=== PATIENT | male | born 1950 | race Caucasian/White ===

== ENCOUNTER 2024-02-08 10:40 | Inpatient (IN) | payer OTHER ==
[~2024-02-08] VITALS: Ht 175.3 cm; Wt 81.0 kg
[2024-02-08 10:40] VITALS: BP_SYST 128; PULSE 79; RESP 20; TEMP 97.1; O2SAT 97
[2024-02-08] MEDS ORDERED: iohexoL 350 mgI/mL, 100 ML INFUS..BTL IV ONE (10:47)
[2024-02-08 11:14] LABS: BASOPHILS % (AUTO) 0.1 % (0.0-2.0); HEMATOCRIT 33.7 % (36-54); HEMOGLOBIN 11.4 g/dL (14.0-18.0); LYMPHOCYTES # (AUTO) 0.7 K/uL (1.0-5.5); LYMPHOCYTES % (AUTO) 3.7 % (20.5-51.5); MEAN CORPUSCULAR HEMOGLOBIN 29 pg (27-31); MEAN CORPUSCULAR HGB CONC 34 % (32-36); MEAN CORPUSCULAR VOLUME 85 fL (79.0-98.0); MONOCYTES # (AUTO) 1.4 K/uL (0.0-1.0); NEUTROPHILS # (AUTO) 18.3 K/uL (1.8-7.7); NEUTROPHILS % (AUTO) 89.2 % (40.0-70.0); PLATELET COUNT (AUTO) 177 K/uL (130-430); RED BLOOD CELL COUNT(AUTO) 3.96 MIL/uL (4.2-6.2); RED CELL DISTRIBUTION WIDTH 13.1 % (9.0-15.0); WHITE BLOOD COUNT (AUTO) 20.5 K/uL (4.8-10.8)
[2024-02-08 11:35] LABS: INR 1.1 (0.80-1.20); PROTHROMBIN TIME 11.7 SECS (9.5-12.5)
[2024-02-08 11:42] LABS: ALANINE AMINOTRANSFERASE 10 U/L (12-78); ALBUMIN 2.4 g/dL (3.4-4.8); ANION GAP 13 (5-15); ASPARTATE AMINOTRANSFERASE 23 U/L (10-37); CALCIUM 7.8 mg/dL (8.4-11.0); CARBON DIOXIDE 21 mmol/L (23-29); CHLORIDE 90 mmol/L (98-107); CREATININE 2.03 mg/dL (0.55-1.30); GLUCOSE 268 mg/dL (74-106); POTASSIUM 3.5 mmol/L (3.5-5.1); SODIUM SERUM 124 mmol/L (136-145); TOTAL PROTEIN, SERUM 5.7 g/dL (6.4-8.3); UREA NITROGEN, BLOOD 30 mg/dL (8-21)
[2024-02-08 11:54] LABS: BILIRUBIN,DIRECT 0.4 mg/dL (0.0-0.3); CREATINE KINASE, TOTAL 284 U/L (39-308)
[2024-02-08] MEDS ORDERED: cefTRIAXone 1 GM VIAL ONE (12:15)
[2024-02-08] MEDS: cefTRIAXone 1 GM in D5W 50 ML IV ONE (12:17)
[2024-02-08 12:19] LABS: ALCOHOL, BLOOD < 3 mg/dL (<10)
[2024-02-08] MEDS ORDERED: ZOLPIDEM TARTRATE 5 MG TABLET PO PRN (12:45)
[2024-02-08] MEDS ORDERED: ONDANSETRON HCL 4 MG/2 ML VIAL IVP PRN (12:45)
[2024-02-08] MEDS ORDERED: LORazepam 2 MG/ML VIAL IVP PRN (12:45)
[2024-02-08] MEDS ORDERED: DOCUSATE SODIUM 100 MG CAPSULE PO PRN (12:45)
[2024-02-08] MEDS ORDERED: INSULIN REGULAR, HUMAN 100 UNITS/ML, 3 ML VIAL (humuLIN R) SUBCUT PRN (12:45)
[2024-02-08] MEDS ORDERED: DEXTROSE 50% JECT 50 ML DISP.SYRIN IVP PRN (12:45)
[2024-02-08] MEDS ORDERED: MUPIROCIN 2% TOPICAL OINTMENT 22 GM NS PRN (12:45)
[2024-02-08] MEDS ORDERED: ACETAMINOPHEN 500 MG TABLET PO PRN ×2 (12:45→14:00)
[2024-02-08] MEDS ORDERED: MAGNESIUM SULFATE 50 ML IV PRN (12:45)
[2024-02-08] MEDS ORDERED: POTASSIUM CHLORIDE 20 MEQ TABLET.ER PO PRN (12:45)
[2024-02-08] MEDS ORDERED: MORPHINE 2 MG/ML INJ. SYRINGE IVP PRN ×2 (12:45)
[2024-02-08] MEDS ORDERED: INSU100V SUBCUT (12:52)
[2024-02-08] MEDS ORDERED: INSU100V9 SUBCUT (12:52)
[2024-02-08] MEDS ORDERED: ATOR20TA64 PO (12:52)
[2024-02-08] MEDS ORDERED: LOSA1TAB43 PO (12:52)
[2024-02-08] MEDS: NACL 0.9% 1,000 ML IV ONE (13:01)
[2024-02-08] MEDS: ASPIRIN 81 MG TABLET(ECOTRIN) PO ONE (13:17)
[2024-02-08] MEDS: NACL 0.9% 1,000 ML IV SCH (13:45)
[2024-02-08 13:59] LABS: BILIRUBIN,URINE NEGATIVE (NEGATIVE); BLOOD, URINE 1+ (NEGATIVE); CLARITY/URINE CLEAR (CLEAR); COLOR,URINE YELLOW (YELLOW); GLUCOSE,URINE NEGATIVE (NEGATIVE); KETONES,URINE 1+ (NEGATIVE); LEUKOCYTE ESTERASE ,URINE NEGATIVE (NEGATIVE); NITRITE, URINE POSITIVE (NEGATIVE); PH,URINE 5.5 (5.0-8.0); PROTEIN URINE NEGATIVE (NEGATIVE); UROBILINOGEN,URINE 0.2 (0.2-1.0)
[2024-02-08] MEDS ORDERED: ACETAMINOPHEN 325 MG TABLET PO PRN (14:00)
[2024-02-08 14:18] LABS: BACTERIA,URINE FEW /HPF (None Seen); RBC,URINE 0-3 /HPF (0-3); WBC,URINE 0-3 /HPF (0-3)
[2024-02-08] MEDS ORDERED: INSULIN REGULAR, HUMAN 10 UNITS/0.1 ML, 3 ML VIAL ONE (15:39)
[2024-02-08] MEDS: INSULIN LISPRO SLIDING SCALE 100 UNITS/ML, 3 ML VIAL (humaLOG) SUBCUT PRN (15:40)
[2024-02-08] MEDS: VANCOMYCIN HCL 1,500 MG in NS 250 ML IV ONE (16:02)
[2024-02-08 19:01] LABS: ANION GAP 8 (5-15); CALCIUM 7.7 mg/dL (8.4-11.0); CARBON DIOXIDE 25 mmol/L (23-29); CHLORIDE 96 mmol/L (98-107); CREATININE 1.52 mg/dL (0.55-1.30); GLUCOSE 260 mg/dL (74-106); POTASSIUM 3.4 mmol/L (3.5-5.1); SODIUM SERUM 129 mmol/L (136-145); UREA NITROGEN, BLOOD 27 mg/dL (8-21)
[2024-02-08 20:31] VITALS: O2SAT 95
[2024-02-08] MEDS: POTASSIUM CHLORIDE 20 MEQ TABLET.ER PO ONE (20:50)
[2024-02-08] MEDS: HEPARIN SODIUM,PORCINE 5,000 UNITS/ML VIAL SUBCUT SCH (20:52)
[2024-02-08 22:00] VITALS: BP_SYST 135; PULSE 75; RESP 20; TEMP 97.6
[2024-02-09 02:00] VITALS: BP_SYST 134; PULSE 84; RESP 20; TEMP 97.6; O2SAT 95
[2024-02-09 06:15] LABS: BASOPHILS % (AUTO) 0.2 % (0.0-2.0); EOSINOPHILS % (AUTO) 0.2 % (0.0-4.0); HEMATOCRIT 31.8 % (36-54); HEMOGLOBIN 11.2 g/dL (14.0-18.0); LYMPHOCYTES # (AUTO) 0.6 K/uL (1.0-5.5); LYMPHOCYTES % (AUTO) 6.3 % (20.5-51.5); MEAN CORPUSCULAR HEMOGLOBIN 30 pg (27-31); MEAN CORPUSCULAR HGB CONC 35 % (32-36); MEAN CORPUSCULAR VOLUME 85 fL (79.0-98.0); MONOCYTES # (AUTO) 0.8 K/uL (0.0-1.0); NEUTROPHILS # (AUTO) 8.5 K/uL (1.8-7.7); NEUTROPHILS % (AUTO) 85.3 % (40.0-70.0); PLATELET COUNT (AUTO) 173 K/uL (130-430); RED BLOOD CELL COUNT(AUTO) 3.74 MIL/uL (4.2-6.2); RED CELL DISTRIBUTION WIDTH 13.1 % (9.0-15.0); WHITE BLOOD COUNT (AUTO) 9.9 K/uL (4.8-10.8)
[2024-02-09 06:53] LABS: ANION GAP 10 (5-15); CALCIUM 7.7 mg/dL (8.4-11.0); CARBON DIOXIDE 21 mmol/L (23-29); CHLORIDE 99 mmol/L (98-107); CREATININE 1.42 mg/dL (0.55-1.30); GLUCOSE 295 mg/dL (74-106); POTASSIUM 3.9 mmol/L (3.5-5.1); SODIUM SERUM 130 mmol/L (136-145); UREA NITROGEN, BLOOD 24 mg/dL (8-21)
[2024-02-09 07:34] LABS: VANCOMYCIN,RANDOM 8.7 ug/mL (20.0-30.0)
[2024-02-09 08:02] VITALS: BP_SYST 116; PULSE 88; RESP 19; TEMP 98.2; O2SAT 99
[2024-02-09 08:04] VITALS: O2SAT 98
[2024-02-09] MEDS: INSULIN GLARGINE 100 UNITS/ML, 10 ML VIAL SUBCUT SCH (09:14)
[2024-02-09] MEDS: CLOPIDOGREL BISULFATE 75 MG TABLET PO SCH (09:14)
[2024-02-09] MEDS: ATORVASTATIN 20 MG TABLET PO SCH (09:14)
[2024-02-09] MEDS: ASPIRIN 81 MG TABLET(ECOTRIN) PO SCH (09:14)
[2024-02-09] MEDS: cefTRIAXone 1 GM in D5W 50 ML IV SCH (10:37)
[2024-02-09 13:01] VITALS: BP_SYST 130; PULSE 68; RESP 16; TEMP 98.6; O2SAT 98
[2024-02-09] MEDS ORDERED: VANCOMYCIN HCL 1,500 MG in NS 250 ML IV SCH (15:00)
[2024-02-09 17:03] VITALS: BP_SYST 125; PULSE 72; RESP 16; TEMP 98.8; O2SAT 98
[2024-02-09 20:00] VITALS: BP_SYST 135; PULSE 85; RESP 18; TEMP 98.8
[2024-02-10 04:36] LABS: BASOPHILS % (AUTO) 0.6 % (0.0-2.0); EOSINOPHILS # (AUTO) 0.1 K/uL (0.0-0.4); EOSINOPHILS % (AUTO) 1.1 % (0.0-4.0); HEMATOCRIT 33.1 % (36-54); HEMOGLOBIN 11.5 g/dL (14.0-18.0); LYMPHOCYTES # (AUTO) 0.7 K/uL (1.0-5.5); MEAN CORPUSCULAR HEMOGLOBIN 30 pg (27-31); MEAN CORPUSCULAR HGB CONC 35 % (32-36); MEAN CORPUSCULAR VOLUME 85 fL (79.0-98.0); MONOCYTES # (AUTO) 0.8 K/uL (0.0-1.0); MONOCYTES % (AUTO) 14.2 % (1.7-9.3); NEUTROPHILS # (AUTO) 3.8 K/uL (1.8-7.7); NEUTROPHILS % (AUTO) 71.1 % (40.0-70.0); PLATELET COUNT (AUTO) 185 K/uL (130-430); RED CELL DISTRIBUTION WIDTH 13.3 % (9.0-15.0); WHITE BLOOD COUNT (AUTO) 5.4 K/uL (4.8-10.8)
[2024-02-10 05:18] LABS: ANION GAP 10 (5-15); CALCIUM 7.7 mg/dL (8.4-11.0); CARBON DIOXIDE 24 mmol/L (23-29); CHLORIDE 100 mmol/L (98-107); GLUCOSE 274 mg/dL (74-106); POTASSIUM 3.8 mmol/L (3.5-5.1); SODIUM SERUM 134 mmol/L (136-145); UREA NITROGEN, BLOOD 15 mg/dL (8-21)
[2024-02-10 08:04] VITALS: O2SAT 99
[2024-02-10] MEDS: ATORVASTATIN 20 MG TABLET PO SCH (09:13)
[2024-02-10] MEDS ORDERED: ASPI-1393 PO (10:25)
[2024-02-10] MEDS ORDERED: AMOX-423 PO (10:25)
[2024-02-10] MEDS ORDERED: LIP40 PO (10:25)
[2024-02-10 11:39] VITALS: BP_SYST 130; PULSE 66; RESP 16; TEMP 96.5; O2SAT 97
[2024-02-10 12:17] VITALS: BP_SYST 125; PULSE 74; RESP 18; TEMP 98.1; O2SAT 99
== END 2024-02-10 14:55 | disposition home health service (06) | DRG 871 ==
LOC: SED 10:40 → STU 12:44
PROVIDERS: ADMIT General Practice; ATTEND General Practice
DX: A41.9 Sepsis, unspecified organism (principal); G93.41 Metabolic encephalopathy; I21.A1 Myocardial infarction type 2; I63.9 Cerebral infarction, unspecified; E44.0 Moderate protein-calorie malnutrition; E87.20 Acidosis, unspecified; N39.0 Urinary tract infection, site not specified; N17.9 Acute kidney failure, unspecified; E87.1 Hypo-osmolality and hyponatremia; E11.65 Type 2 diabetes mellitus with hyperglycemia; E11.43 Type 2 diabetes mellitus with diabetic autonomic (poly)neuropathy; I10 Essential (primary) hypertension; E78.5 Hyperlipidemia, unspecified; E11.21 Type 2 diabetes mellitus with diabetic nephropathy; I25.5 Ischemic cardiomyopathy; Z91.199 Patient's noncompliance with other medical treatment and regimen due to unspecified reason; Z87.891 Personal history of nicotine dependence; Z79.899 Other long term (current) drug therapy; Z68.26 Body mass index [BMI] 26.0-26.9, adult
CPT/HCPCS: 36415; 70450-TC; 70496; 70498; 70551; 71045; 80048; 80076; 80202; 81000; 81001; 81015; 82550; 82948; 83037; 83605; 83735; 84484; 85025; 85610; 85730; 87040; 93005; 93306; 96361; 96365; 97112-GP; 97116-GP; 99291; G0378; G0482; J0696; J1644; J1815; J3370; J7050; J7060; Q9967